=== PATIENT | female | born 1955 | race African-American/Black ===

== ENCOUNTER 2022-07-19 17:02 | Emergency (ER) | payer OTHER, MEDICAID ==
[~2022-07-19] VITALS: Ht 167.6 cm; Wt 83.0 kg
[~2022-07-19 17:02] MED LIST: ASPI-1497 PO; LOSA1TAB37 PO
[2022-07-19 17:08] VITALS: BP 103/66
== END 2022-07-19 18:43 | disposition left against medical advice (07) ==
LOC: ER 17:02
DX: Z53.21 Procedure and treatment not carried out due to patient leaving prior to being seen by health care provider (principal)